=== PATIENT | male | born 1990 | race African-American/Black ===

== ENCOUNTER 2023-09-22 08:58 | Emergency (ER) | payer SELFPAY ==
--- NOTE | 2023-09-22 10:27 | ER ---
Nurse's Notes [facility] Name: Horacio Bazzi Age: 32 yrs Sex: Male : 1990 Arrival Date: 09/22/2023 Time: 08:58 Bed 20 Private MD: Diagnosis: Acute upper respiratory infection, unspecified;Contact with and (suspected) exposure to other viral communicable diseases Presentation: 09/21 09:12 Chief complaint: Patient states: Cough and sneezing for the past 3 days. Coronavirus nj1 screen: Vaccine status: Patient reports being unvaccinated. Ebola Screen: Patient denies travel to an Ebola-affected area in the 21 days before illness onset. Initial Sepsis Screen: Does the patient meet any 2 criteria? No. Patient's initial sepsis screen is negative. Does the patient have a suspected source of infection? No. Patient's initial sepsis screen is negative. Risk Assessment: Do you want to hurt yourself or someone else? Patient reports no desire to harm self or others. Onset of symptoms was September 19, 2023. 09:12 Method Of Arrival: Ambulatory [facility] 09:12 Acuity: CHRIS 4 nj1 Historical: - Allergies: 09:24 No Known Allergies; aa5 - PMHx: 09:24 None; aa5 - Immunization history:: Client reports having NOT received the Covid vaccine. - Infectious Disease History:: Denies. - Social history:: Smoking status: Reported history of juuling and/or vaping. Screenin:25 [facility] ED Fall Risk Assessment (Adult) History of falling in the last 3 months, aa5 including since admission No falls in past 3 months (0 pts) Confusion or Disorientation No (0 pts) Intoxicated or Sedated No (0 pts) Impaired Gait No (0 pts) Mobility Assist Device Used No (0 pt) Altered Elimination No (0 pt) Score/Fall Risk Level 0 - 2 = Low Risk Oriented to surroundings, Maintained a safe environment, Hourly rounding (assess needs \T\ fall precautionary measures) done. Abuse screen: Denies threats or abuse. Denies injuries from another. Nutritional screening: No deficits noted. Tuberculosis screening: No symptoms or risk factors identified. Assessment: 09:15 General: Appears in no apparent distress. comfortable, Behavior is calm, cooperative, aa5 appropriate for age. 09:15 Pain: Denies pain. Neuro: Level of Consciousness is awake, alert, obeys commands, aa5 Oriented to person, place, time, situation. Cardiovascular: Patient's skin is warm and dry. Respiratory: Airway is patent Respiratory effort is even, unlabored. Respiratory: Reports cough that is. 10:30 Reassessment: Patient appears in no apparent distress at this time. Patient is alert, nj1 oriented x 3, equal unlabored respirations, skin warm/dry/pink. Vital Signs: 09:12 BP 128 / 80; Pulse 64; Resp 18; Temp 98(O); Pulse Ox 97% on R/A; Weight 113.4 kg; nj1 Height 5 ft. 9 in. ; 10:30 BP 139 / 73; Pulse 76; Resp 18; Temp 97(TE); Pulse Ox 100% ; nj1 09:12 Body Mass Index 36.92 (113.40 kg, 175.26 cm) nj1 ED Course: 09:01 Patient arrived in ED. mr 09:03 Caroline Flanagan MD is Attending Physician. sd2 09:05 Sana Lim, SJ is Primary Nurse. aa5 09:12 Arm band placed on. Patient has correct armband on for positive identification. Bed in nj1 low position. Call light in reach. Provided Education on: call light, fall precautions. 09:24 Triage completed. aa5 09:36 Primary Nurse role handed off by Sana Lim, SJ nj1 09:36 Che Malone, SJ is Primary Nurse. nj1 10:32 No provider procedures requiring assistance completed. Patient did not have IV access nj during this emergency room visit. Administered Medications: No medications were administered Medication: 09:12 VIS not applicable for this client. nj1 Outcome: 10:27 Discharge ordered by . sd2 10:32 Discharged to home ambulatory, nj1 10:32 Condition: stable 10:32 Discharge instructions given to patient, Instructed on discharge instructions, follow up and referral plans. Demonstrated understanding of instructions, follow-up care, 10:37 Patient left the ED. nj1 Signatures: Petrona Maki, Reg Reg mr Sana Lim, SJ RN aa5 Caroline Flanagan MD MD sd2 Che Malone RN RN nj1 Corrections: (The following items were deleted from the chart) 09:48 09:15 Chief complaint: Patient states: Cough and sneezing for the past 3 days. [place] [id number] 09:15 Coronavirus screen: Vaccine status: Patient reports being unvaccinated. [place] [id number] 09:15 Ebola Screen: Patient denies travel to an Ebola-affected area in the 21 days [facility] before illness onset. [facility] 09:15 Initial Sepsis Screen: Does the patient meet any 2 criteria? No. Patient's [facility] initial sepsis screen is negative. Does the patient have a suspected source of infection? No. Patient's initial sepsis screen is negative. [facility] 09:15 Risk Assessment: Do you want to hurt yourself or someone else? Patient reports no [facility] desire to harm self or others. [facility] 09:15 Onset of symptoms was September 19, 2023 [place] [id number] 09:15 Method Of Arrival: Ambulatory [place] [id number] 09:15 BP 128 / 80; Pulse 64bpm; Resp 18bpm; Pulse Ox 97% RA; Temp 98F Oral; 113.4 kg; [facility] Height 5 ft. 9 in.; BMI: 36.9; [facility] 09:15 Acuity: CHRIS 4 [place] [id number] 49 09:15 The history from the nurse's notes was reviewed and I agree with what is [facility] documented. sd2 49 09:24 Immunization history: Client reports having NOT received the Covid vaccine. [place] [id number] 49 09:24 Social history: Smoking status: Reported history of juuling and/or vaping. [place] [id number] 49 09:24 Infectious Disease History: Denies. [place] [id number] 49 09:26 VIS not applicable for this client. [place] [id number] 50 09:24 Arm band placed on [place] [id number] 50 09:26 Patient has correct armband on for positive identification. Bed in low position. [facility] Call light in reach. [facility] 09:26 Provided Education on: call light, fall precautions. [place] [id number] 10:37 10:30 BP 139 / 73; Pulse 76bpm; Resp 18bpm; Pulse Ox 100%; [place] [id number]
--- NOTE | 2023-09-22 10:28 | EDPHYS ---
Physician Documentation [facility] Name: Horacio Bazzi Age: 32 yrs Sex: Male : 1990 Arrival Date: 09/22/2023 Time: 08:58 Bed 20 Private MD: ED Physician Caroline Flanagan HPI: 09/21 09:15 This 32 yrs old Black Male presents to ER via Unassigned with complaints of Cough. sd2 09:15 32-year-old male presents with chief complaint of cough and congestion. This has been sd2 ongoing for the past 3 days. He reports he was exposed to his grandmother who was tested positive for COVID 2 days ago. Denies any associated fevers, nausea, vomiting, chest pain, shortness of breath or diarrhea.. Historical: - Allergies: 09:24 No Known Allergies; aa5 - PMHx: :24 None; aa5 - Immunization history:: Client reports having NOT received the Covid vaccine. - Infectious Disease History:: Denies. - Social history:: Smoking status: Reported history of juuling and/or vaping. ROS: 09:15 Constitutional: Negative for fever, chills, and weight loss, Eyes: Negative for injury, sd2 pain, redness, and discharge, ENT: Negative for injury, pain, and discharge, Cardiovascular: Negative for chest pain, palpitations, and edema, Respiratory: Negative for shortness of breath, wheezing. Positive for cough Abdomen/GI: Negative for abdominal pain, nausea, vomiting, diarrhea. MS/Extremity: Negative for injury and deformity, Skin: Negative for injury, rash, and discoloration, Neuro: Negative for headache, numbness and tingling. Exam: 09:15 Constitutional: This is a well developed, well nourished patient who is awake, alert, sd2 and in no acute distress. Head/Face: Normocephalic, atraumatic. Eyes: EOMI, normal conjunctiva bilaterally ENT: Nares patent. No nasal discharge, no septal abnormalities noted. Mucous membranes moist. Chest/axilla: Normal chest wall appearance and motion. Nontender with no deformity. Cardiovascular: Regular rate and rhythm with a normal S1 and S2. No gallops, murmurs, or rubs. 2+ distal pulses. Respiratory: Lungs have equal breath sounds bilaterally, clear to auscultation and percussion. No rales, rhonchi or wheezes noted. No increased work of breathing, no retractions or nasal flaring. Abdomen/GI: Soft, non-tender, with normal bowel sounds. No guarding or rebound. No evidence of tenderness throughout. Skin: Warm, dry with normal turgor. Normal color with no rashes, no lesions, and no evidence of cellulitis. MS/ Extremity: Pulses equal, no cyanosis. Neurovascular intact. Full, normal range of motion. Psych: Awake, alert, with orientation to person, place and time. Behavior, mood, and affect are within normal limits. Vital Signs: 09:12 BP 128 / 80; Pulse 64; Resp 18; Temp 98(O); Pulse Ox 97% on R/A; Weight 113.4 kg; nj1 Height 5 ft. 9 in. ; 10:30 BP 139 / 73; Pulse 76; Resp 18; Temp 97(TE); Pulse Ox 100% ; nj1 09:12 Body Mass Index 36.92 (113.40 kg, 175.26 cm) nj1 MDM: 09:03 Patient medically screened. sd2 09:15 Differential Diagnosis: Other Differential diagnosis includes but is not limited to: sd2 Viral URI, acute otitis media, acute otitis externa, pneumonia, UTI, COVID, flu, herpangina among others. Data reviewed: vital signs, nurses notes. Historians other than the Patient: Spouse/Significant Other: Significant other at bedside. Counseling: I had a detailed discussion with the patient and/or guardian regarding the historical points, exam findings, and any diagnostic results supporting the discharge/admit diagnosis, lab results, the need for outpatient follow up, to return to the emergency department if symptoms worsen or persist or if there are any questions or concerns that arise at home. 10:25 ED course: Labs reviewed. Viral testing negative. Pt advised of results and continued sd2 supportive care for symptoms as well as need for outpatient follow up. Pt verbalizes understanding of discharge plan and strict return precautions at this time.. 09/21 09:11 Order name: COVID-19 SARS RT PCR; Complete Time: 10:27 sd2 09/21 09:11 Order name: Flu; Complete Time: 10:27 sd2 Administered Medications: No medications were administered Disposition Summary: 09/22/23 10:27 Discharge Ordered Problem: new sd2 Symptoms: are unchanged sd2 Condition: Stable sd2 Diagnosis - Acute upper respiratory infection, unspecified sd2 - Contact with and (suspected) exposure to other viral communicable diseases sd2 Followup: sd2 - With: Private Physician - When: 2 - 3 days - Reason: Recheck today's complaints, Continuance of care, Re-evaluation by your physician Discharge Instructions: - Discharge Summary Sheet sd2 - Upper Respiratory Infection, Adult sd2 - Cough, Adult, [id number] sd2 Forms: - Work release form sd2 - Medication Reconciliation Form sd2 - Antibiotic Education sd2 - Prescription Opioid Use sd2 - Patient Portal Instructions sd2 - Leadership Thank You Letter sd2 Signatures: Dispatcher [employer] Sana Aguayo RN RN aa5 Caroline Flanagan MD MD sd2 Che Malone RN RN nj1 Corrections: (The following items were deleted from the chart) 09:49 09:15 The history from the nurse's notes was reviewed and I agree with what is nj1 documented. sd2 :49 09:24 Immunization history: Client reports having NOT received the Covid vaccine. aa5 nj1 :49 09:24 Social history: Smoking status: Reported history of juuling and/or vaping. aa5 nj1 :49 09:24 Infectious Disease History: Denies. aa5 nj1
[2023-09-22 11:29] VITALS: BP 139/73; TEMP 97; O2SAT 100
== END 2023-09-22 10:37 | disposition home or self-care (01) ==
LOC: ER 08:58
DX: J06.9 Acute upper respiratory infection, unspecified (principal); Z20.828 Contact with and (suspected) exposure to other viral communicable diseases; Z11.52 Encounter for screening for COVID-19
CPT/HCPCS: 87635; 87804; 99283